=== PATIENT | female | born 1990 | race Hispanic/Latino ===

== ENCOUNTER 2016-09-12 13:13 | Emergency (ER) | payer SELFPAY ==
[2016-09-12] MEDS ORDERED: TORADOL IV ONE (13:45)
[2016-09-12] MEDS ORDERED: BENADRYL IV ONE (13:45)
[2016-09-12] MEDS ORDERED: NACL 0.9% 1000 ML 1,000 ML IV ONE (13:45)
[2016-09-12] MEDS ORDERED: REGLAN IV ONE (13:45)
--- NOTE | 2016-09-12 15:11 | Emergency Department Report ---
Entered by HOLLI LAU, acting as scribe for KARLIE INFANTE NP. ED Headache HPI - General Chief Complaint: Headache Stated Complaint: MIGRAINES Time Seen by Provider: 09/12/16 13:27 Source: patient Exam Limitations: no limitations - History of Present Illness Initial Comments: Pt is a 26 y.o. female with a hx of migraines who presents to [facility] for a 2-3 week hx of persistent left frontal headache with associated left neck tension and lack of appetite. She reports that she has been treating her [place] with Imitrex, which she states alleviates her 10/10 pain, but she ran out yesterday. She states that her current headache is typical of her past migraines. Pt does not report fever, photophobia, focal weakness, or numbness. She denies N/V. She notes that she is currently menstruating, but denies this being a trigger for her migraines historically. nkda Timing/Duration: other (2-3 week hx) Quality: severe Head Injury Location: frontal (left frontal) Modifying Factors: improves with: medication (Imitrex) Associated Symptoms: stiff neck, other (Positive for lack of appetite). denies : fever/chills, nausea/vomiting, numbness in legs/feet, weakness Home Medications: Ambulatory Orders SUMAtriptan SUCCINATE [Imitrex] 50 mg PO BID PRN #6 tab 09/12/16 ED Review of Systems Comment: All other systems reviewed and negative Constitutional: see HPI, other (Positive for lack of appetite) Respiratory: no symptoms reported Endocrine: no symptoms reported Musculoskeletal: other (Positive for left neck tension) Neurological: headache. denies: weakness, numbness ED Past Medical Hx - Past Medical History Previous Medical History?: Yes Hx Headaches / Migraines: Yes - Medications Home Medications: Home Medications Medication Instructions Recorded Confirmed Last Taken Type SUMAtriptan SUCCINATE [Imitrex] 50 mg PO BID PRN #6 tab 09/12/16 Unknown Rx ED Physical Exam - General Limitations: No Limitations General appearance: alert, in no apparent distress - Head Head exam: Present: atraumatic, normocephalic - Eye Eye exam: Present: EOMI, other (Right iris has a small hyperpigmented area which the patient states is a double pupil-- otherwise normal appearance.). Absent: conjunctival injection, nystagmus - ENT ENT exam: Present: normal exam, mucous membranes moist, normal external ear exam - Neck Neck exam: Present: normal inspection, full ROM. Absent: tenderness, lymphadenopathy - Respiratory Respiratory exam: Present: normal lung sounds bilaterally. Absent: respiratory distress - Cardiovascular Cardiovascular Exam: Present: regular rate, normal rhythm. Absent: systolic murmur, diastolic murmur, rubs, gallop - GI/Abdominal GI/Abdominal exam: Present: soft, normal bowel sounds - Extremities Exam Extremities exam: Present: normal inspection, full ROM - Back Exam Back exam: Present: normal inspection, full ROM. Absent: tenderness, CVA tenderness (R), CVA tenderness (L) - Neurological Exam Neurological exam: Present: alert, oriented X3, CN II-XII intact. Absent: motor sensory deficit - Expanded Neurological Exam Expanded Neurological exam: Absent: innattentive, ataxia, receptive aphasia, expressive aphasia, total aphasia, tremor Patient oriented to: Present: person, place, time Speech: Present: fluid speech. Absent: receptive aphasia, expressive aphasia, total aphasia Best Eye Response (Abdoulaye): (4) open spontaneously Best Motor Response (Abdoulaye): (6) obeys commands Best Verbal Response (Abdoulaye): (5) oriented [place] Total: 15 - Psychiatric Psychiatric exam: Present: normal affect, normal mood - Skin Skin exam: Present: warm, dry, intact, normal color. Absent: rash ED Course Vital Signs 09/12/16 15:30 Temperature 98.6 F Pulse Rate 72 Respiratory 18 Rate Blood Pressure 112/70 [Right] O2 Sat by Pulse 98 Oximetry - Reevaluation(s) Reevaluation #1: 09/12/16 14:55 14:52, Pt states that her initially 10/10 pain has improved to a 2/10. She states that she feels much better. ED Medical Decision Making - Differential Diagnosis migriane, headache Critical Care Time: No ED Disposition Clinical Impression: Acute headache Qualifiers: Headache type: unspecified Intractability: not intractable Qualified Code(s): R51 - Headache Disposition: TO HOME OR SELFCARE Is pt being admited?: No Does the pt Need Aspirin: No Condition: Stable Instructions: Migraine Headache (ED), Acute Headache (ED) Additional Instructions: Follow up with your PCP on Wednesday Take your home nausea medication as needed Prescriptions: SUMAtriptan SUCCINATE [Imitrex] 50 mg PO BID PRN #6 tab PRN Reason: Headache Referrals: PRIMARY CARE,MD [Primary Care Provider] - 3-5 Days JADE NGUYEN MD [Staff Physician] - 3-5 Days Time of Disposition: 15:07 This documentation as recorded by the SID sigala KELLY,accurately reflects the service I personally performed and the decisions made by ,KARLIE INFANTE , [employer].
[2016-09-12 15:31] VITALS: BP 112/70
== END 2016-09-12 15:29 | disposition home or self-care (01) ==
LOC: ED 13:13
DX: G43.909 Migraine, unspecified, not intractable, without status migrainosus (principal)
CPT/HCPCS: 96361; 96374; 96375; 99282; J1200; J1885; J2765; J7030